=== PATIENT | male | born 1940 | race Caucasian/White ===

== ENCOUNTER 2020-01-31 08:26 | Outpatient (NON) | payer MEDICARE, SELFPAY ==
[2020-01-31 18:57] LABS: SARS-CoV-2 RNA PCR Negative
== END 2020-01-31 08:27 ==
PROVIDERS: Visit Provider Internal Medicine
DX: Z20.828 Contact with and (suspected) exposure to other viral communicable diseases (principal)
CPT/HCPCS: 87635; C9803; U0003